=== PATIENT | male | born 1960 | race American Indian/Alaskan Native ===

== ENCOUNTER 2017-03-16 09:20 | Outpatient (CLI) | payer MEDICARE ==
--- NOTE | 2017-03-21 09:38 | Vascular Lab Report ---
RENAL ARTERY DUPLEX EXAM: REASON FOR EXAM: Renal artery stenosis. NOTE: Visualization is technically adequate. COMMENTS ON THE AORTA: The aorta is patent. Normal flow velocities are observed. No aneurysmal dilatation is noted. Mild atherosclerotic change is identified. The celiac artery is patent with normal flow velocity. The superior mesenteric artery is patent with normal flow velocity. COMMENTS ON THE RIGHT KIDNEY: The kidney measures 10.7 centimeters in greatest dimension. No obvious parenchymal abnormalities are noted. The renal artery is patent. Maximum systolic velocity is 117 cm/sec. This finding is consistent with less than 60% diameter reduction. Renal aortic index is 1.65. This finding is consistent with less than 60% diameter reduction. Overall findings are consistent with less than 60% diameter reduction in the renal artery. COMMENTS ON THE LEFT KIDNEY: The kidney measures 10.4 centimeters in greatest dimension. No obvious parenchymal abnormalities are noted. The renal artery is patent. Maximum systolic velocity is 149 cm/sec. This finding is consistent with less than 60% diameter reduction. Renal aortic index is 2.07. This finding is consistent with less than 60% diameter reduction. Overall findings are consistent with less than 60% diameter reduction in the renal artery. IMPRESSION: RIGHT KIDNEY: Less than 60% diameter reduction in the renal artery. LEFT KIDNEY: Less than 60% diameter reduction in the renal artery.
== END 2017-03-16 09:21 | disposition home or self-care (01) ==
LOC: VAS 09:20
PROVIDERS: ATTEND Internal Medicine
DX: I70.1 Atherosclerosis of renal artery (principal); I10 Essential (primary) hypertension
CPT/HCPCS: 93975

== ENCOUNTER 2020-04-26 15:15 | Emergency (ER) | payer MEDICARE ==
--- NOTE | 2020-04-26 17:29 | Event Note ---
ED Screening Note Date of service: 04/26/20 Time: 17:27 ED Screening Note: The 9-year-old -Vietnamese male was sent here to the emergency room by [facility] today as blood pressure was elevated at 210/120 with a heart rate of 88. Office gave him a clonidine and sent him to the emergency room. Patient was triaged with a blood pressure of 157/115. I rechecked patient's blood pressure its 201/130. Patient does complain of a headache. Patient medication list from [facility] is clonidine 0.2 mg 3 times a day, Eliquis 5 mg twice a day, furosemide 20 mg daily nifedipine ER 90 mg extended release in the evening and spironolactone 25 mg daily in the evening as well as Toprol XL 100 mg extended release once a day. Patient last echocardiogram ejection fraction of 30%. Patient denies any chest pain or shortness of breath but does report a headache. This initial assessment/diagnostic orders/clinical plan/treatment(s) is/are subject to change based on patients health status, clinical progression and re- assessment by fellow clinical providers in the ED. Further treatment and workup at subsequent clinical providers discretion. Patient/guardian urged not to elope from the ED as their condition may be serious if not clinically assessed and managed. Initial orders include:
[2020-04-26] MEDS ORDERED: hydrALAZINE 20 MG/1 ML INJ IV ONE ×2 (20:24→21:31)
[2020-04-26 20:27] LABS: Basophils # (Auto) 0.1 K/mm3 (0.0-0.1); Basophils % (Auto) 1.2 % (0.0-1.8); Eosinophils # (Auto) 0.1 K/mm3 (0.0-0.4); Eosinophils % (Auto) 1.1 % (0.0-4.3); Hematocrit 41.5 % (35.5-45.6); Hemoglobin 14.3 gm/dl (11.8-15.2); Lymphocytes # (Auto) 2.4 K/mm3 (1.2-5.4); Mean Corpuscular HGB Conc 34 % (32-34); Mean Corpuscular Volume 92 fl (84-94); Monocytes # (Auto) 0.7 K/mm3 (0.0-0.8); Monocytes % (Auto) 10.9 % (0.0-7.3); Platelet Count 298 K/mm3 (140-440); Red Blood Count 4.53 M/mm3 (3.65-5.03); Red Cell Distribution Width 13.9 % (13.2-15.2)
[2020-04-26 20:43] LABS: BUN/Creatinine Ratio 14; Blood Urea Nitrogen 11 mg/dL (9-20); Calcium 9.4 mg/dL (8.4-10.2); Hemolysis Index 9
--- NOTE | 2020-04-26 21:31 | Emergency Department Report ---
HPI - General Chief Complaint: High BP Time Seen by Provider: 04/26/20 19:40 - HPI HPI: There is a line assigner at bedside to assist with the patient's history and physical and she will remain with us in the emergency department during this patient's ED course. This is a 59-year-old -[place] male who [facility], sent in by his rug touch up painter Dr. Nye, secondary to very elevated blood pressure. The patient follows up with [place] [facility] secondary to hypertension and a history of cardiomyopathy. The patient was doing a routine follow-up when he was found to have a blood pressure with a systolic of 230 despite compliance with his medications. He was given 0.1 mg of clonidine and told to come to the emergency department for further evaluation. Patient denies any chest pain, shortness of breath, fever, cough, back pain, lower extremity swelling. He has a mild generalized headache that is currently 2 out of 10 in intensity and the patient says that he feels like his legs are "heavy." He denies any vision change, facial droop, slurred speech, numbness or paresthesias. ED Past Medical Hx - Past Medical History Hx Hypertension: Yes Hx Congestive Heart Failure: Yes (cardiomyopathy) Hx Renal Disease: Yes (renal insufficiency) Additional medical history: UNKNOWN - Social History Smoking Status: Never Smoker Substance Use Type: None - Medications Home Medications: Home Medications Medication Instructions Recorded Confirmed Last Taken Type Cephalexin [Keflex] 500 mg PO TID #20 capsule 09/01/13 Unknown Rx Furosemide [Lasix] 40 mg PO DAILY 30 Days tablet 09/01/13 Unknown Rx HYDROcodone/APAP 10-325 [[place] 1 each PO Q8HR PRN #20 tablet 09/01/13 Unknown Rx 10/325] Hydralazine HCl [hydrALAZINE] 50 mg PO TID 30 Days tablet 09/01/13 Unknown Rx Lisinopril [Zestril] 40 mg PO DAILY #30 tablet 09/01/13 Unknown Rx Spironolactone 25 mg PO DAILY #30 tablet 09/01/13 Unknown Rx carvediloL [Coreg] 25 mg PO BID #60 tablet 09/01/13 Unknown Rx Amoxicillin/K Clav Tab [Augmentin 1 tab PO BID #12 tablet 08/07/14 Unknown Rx 875MG] ED Review of Systems ROS: Stated complaint: HTN Other details as noted in HPI Comment: All other systems reviewed and negative Constitutional: weakness. denies: chills, fever Eyes: denies: eye pain, vision change ENT: denies: ear pain, throat pain Respiratory: denies: cough, shortness of breath Cardiovascular: denies: chest pain, palpitations Gastrointestinal: denies: abdominal pain, vomiting Genitourinary: denies: dysuria, discharge Musculoskeletal: denies: back pain, arthralgia Skin: denies: rash, lesions Neurological: headache. denies: numbness, paresthesias Physical Exam - Physical Exam Vital Signs: Vital Signs 04/26/20 04/26/20 04/26/20 15:45 17:35 19:48 Temperature 98 F 98.5 F Pulse Rate 80 74 61 Respiratory 22 17 Rate Blood Pressure 159/115 Blood Pressure 201/130 197/117 [Right] O2 Sat by Pulse 100 100 Oximetry 04/26/20 04/26/20 19:51 20:52 Temperature Pulse Rate 40 L Respiratory 17 Rate Blood Pressure 168/107 Blood Pressure [Right] O2 Sat by Pulse 100 Oximetry Physical Exam: GENERAL: The patient is well-developed well-nourished. HENT: Normocephalic. Atraumatic. Patient has moist mucous membranes. EYES: Extraocular motions are intact. No nystagmus. NECK: Supple. Trachea is midline. CHEST/LUNGS: Clear to auscultation. There is no respiratory distress noted. HEART/CARDIOVASCULAR: Regular. There is no tachycardia. There is no murmur. ABDOMEN: Abdomen is soft, nontender. Patient has normal bowel sounds. There is no abdominal distention. SKIN: Skin is warm and dry. NEURO: The patient is awake, alert, and oriented. The patient is cooperative. The patient has no focal neurologic deficits. MUSCULOSKELETAL: There is no tenderness or deformity. There is no limitation range of motion. ED Course Vital Signs 04/26/20 04/26/20 04/26/20 15:45 17:35 19:48 Temperature 98 F 98.5 F Pulse Rate 80 74 61 Respiratory 22 17 Rate Blood Pressure 159/115 Blood Pressure 201/130 197/117 [Right] O2 Sat by Pulse 100 100 Oximetry 04/26/20 04/26/20 19:51 20:52 Temperature Pulse Rate 40 L Respiratory 17 Rate Blood Pressure 168/107 Blood Pressure [Right] O2 Sat by Pulse 100 Oximetry ED Medical Decision Making - Lab Data Result diagrams: 04/26/20 20:06 04/26/20 20:06 Lab Results 04/26/20 04/26/20 Range/Units 20:06 20:06 WBC 6.5 (4.5-11.0) K/mm3 RBC 4.53 (3.65-5.03) M/mm3 Hgb 14.3 (11.8-15.2) gm/dl Hct 41.5 (35.5-45.6) % MCV 92 (84-94) fl MCH 32 (28-32) pg MCHC 34 (32-34) % RDW 13.9 (13.2-15.2) % Plt Count 298 (140-440) K/mm3 Lymph % (Auto) 37.0 H (13.4-35.0) % [place] % (Auto) 10.9 H (0.0-7.3) % Eos % (Auto) 1.1 (0.0-4.3) % Baso % (Auto) 1.2 (0.0-1.8) % Lymph # (Auto) 2.4 (1.2-5.4) K/mm3 [place] # (Auto) 0.7 (0.0-0.8) K/mm3 Eos # (Auto) 0.1 (0.0-0.4) K/mm3 Baso # (Auto) 0.1 (0.0-0.1) K/mm3 Seg Neutrophils % 49.8 (40.0-70.0) % Seg Neutrophils # 3.3 (1.8-7.7) K/mm3 Sodium 134 L (137-145) mmol/L Potassium 3.7 (3.6-5.0) mmol/L Chloride 99.1 (98-107) mmol/L Carbon Dioxide 25 (22-30) mmol/L Anion Gap 14 mmol/L BUN 11 (9-20) mg/dL Creatinine 0.8 (0.8-1.3) mg/dL Estimated GFR > 60 ml/min BUN/Creatinine Ratio 14 % Glucose 86 (75-100) mg/dL Calcium 9.4 (8.4-10.2) mg/dL - EKG Data -: EKG Interpreted by Nv EKG shows normal: sinus rhythm, axis, intervals, QRS complexes (Incomplete left bundle branch block, LVH), ST-T waves (T wave inversions to the lateral leads) Rate: normal - EKG Data When compared to previous EKG there are: no significant change Interpretation: unchanged when compared t (02/23/12) - Radiology Data Radiology results: report reviewed CT BRAIN: 04/26/2020 INDICATION / CLINICAL INFORMATION: Hypertension and Heada preet. COMPARISON: None available. FINDINGS: BRAIN/INTRACRANIAL STRUCTURES: Unenhanced CT images of the brain demonstrate no evidence of acute intracranial abnormality. Ventricles and sulci are normal in size and shape. There is no evidence of ischemic injury, hemorrhage, or mass. There are no abnormal extra- axial fluid collections EXTRACRANIAL STRUCTURES: Unremarkable. IMPRESSION: No acute abnormality. - Medical Decision Making This patient presents to the emergency department, sent in by his rug touch up painter, after he was found to have a very elevated blood pressure in their office with a systolic of about 230. Upon presentation to the emergency department the patient still has significant hypertension with a systolic of about 200. He denies any chest pain, shortness of breath. The patient complains of a very mild generalized headache and what sounds like some generalized weakness. However given the elevated blood pressure and this complaint of a headache, the patient had a CT scan of the head without contrast that did not show any bleed, shift, mass, ischemia, or any other acute processes. Labs were unremarkable according CBC and metabolic panel. EKG did not have any morphology consistent with ST elevation myocardial infarction or any arrhythmia. Patient was given a dose of IV hydralazine and his blood pressure came down to a more reasonable level. For all these reasons the patient appears safe for discharge home at this time. We discussed staying away from foods that are high in salt and caffeinated products. He will continue taking his blood pressure, and all of his medications, as prescribed. He will keep a blood pressure log. He has good outpatient follow-up with primary care and cardiology. He will return to the emergency department with any worsening of his symptoms or with any acute distress. The line assigner was used throughout his ED course and to discuss the patient's lab and imaging results, as well as the plan for discharge home. Critical Care Time: No Critical care attestation.: If time is entered above; I have spent that time in minutes in the direct care of this critically ill patient, excluding procedure time. ED Disposition Clinical Impression: Asymptomatic hypertensive urgency Disposition: DC-01 TO HOME OR SELFCARE Is pt being admited?: No Condition: Stable Instructions: Hypertension, Adult Additional Instructions: Please follow-up with your primary care physician in the next few days. Please follow-up with your rug touch up painter regarding your hypertension for further evaluation and any medication changes. For now, take all medications as previously prescribed. Try to stay away from foods that are high in salt and caffeinated products. Keep a blood pressure log. Return to the emergency department with any worsening of your symptoms, new or concerning symptoms not addressed during this current emergency department visit, or with any acute distress. Referrals: PRIMARY CARE, [Primary Care Provider] - 2-3 Days JUNAITA DOCKERY MD [Staff Physician] - 2-3 Days Time of Disposition: 22:19
--- NOTE | 2020-04-26 21:58 | Cat Scan Report ---
CT BRAIN: 04/26/2020 INDICATION / CLINICAL INFORMATION: Hypertension and Headache. COMPARISON: None available. FINDINGS: BRAIN/INTRACRANIAL STRUCTURES: Unenhanced CT images of the brain demonstrate no evidence of acute int racranial abnormality. Ventricles and sulci are normal in size and shape. There is no evidence of ischemic injury, hemorrhage, or mass. There are no abnormal extra-axial fluid collections EXTRACRANIAL STRUCTURES: Unremarkable. IMPRESSION: No acute abnormality. All CT scans at this location are performed using dose reduction to ALARA by means of automated expos ure control. Signer Name: Ayo Smith MD Signed: 04/26/2020 9:53 PM Workstation Name: [id number]
[2020-04-26 22:54] VITALS: BP 172/106
--- NOTE | 2020-04-29 10:59 | Electrocardiograph Report ---
[facility] Test Date: 2020-04-26 Test Time: 21:49:49 Pat Name: DANIEL FERRELL Department: Room: Gender: M [place]: : 1960 Requested By: ARLEY CAMPOS Order Number: [id number] Reading MD: Gino Hunter Measurements Intervals [place] Rate: 84 P: 64 SD: 195 QRS: 46 QRSD: 111 T: -23 QT: 398 QTc: 469 Interpretive Statements Sinus rhythm Left atrial enlargement Incomplete left bundle branch block Left ventricular hypertrophy Anterior ST elevation, probably due to LVH No previous ECG available for comparison Electronically Signed On 04-29-2020 7:58:47 PDT by Gino Hunter
== END 2020-04-26 23:06 | disposition home or self-care (01) ==
LOC: ED 15:15
DX: I16.0 Hypertensive urgency (principal); F17.200 Nicotine dependence, unspecified, uncomplicated; R51.9 Headache, unspecified; Z79.899 Other long term (current) drug therapy
CPT/HCPCS: 36415; 70450; 80048; 85025; 93005; 96374; 96376; 99284; J0360

== ENCOUNTER 2021-04-25 16:27 | Inpatient (IN) | payer MEDICARE, OTHER ==
[2021-04-25] MEDS ORDERED: SODIUM CHLORIDE 0.9% 1000 ML 1,000 ML IV ONE (16:53)
[2021-04-25] MEDS ORDERED: METOPROLOL TARTRATE 5 MG/5 ML INJ IV ONE (16:53)
--- NOTE | 2021-04-25 17:30 | XRay Report ---
CHEST 1 VIEW INDICATION: Chest Pain. COMPARISON: None. FINDINGS: Support devices: Cardiac leads project in expected position. Heart: Upper limits of normal. Lungs/Pleura: There are low lung volumes with atelectatic changes in the bases. No pleural abnormalit y. IMPRESSION: 1. No acute findings. Presumed atelectatic changes in the bases. Signer Name: Umesh Lloyd MD Signed: 04/25/2021 5:26 PM Workstation Name: [id number]
[2021-04-25 17:32] LABS: Basophils # (Auto) 0.1 K/mm3 (0.0-0.1); Eosinophils # (Auto) 0.1 K/mm3 (0.0-0.4); Eosinophils % (Auto) 0.7 % (0.0-4.3); Hematocrit 44.1 % (35.5-45.6); Hemoglobin 15.1 gm/dl (11.8-15.2); Lymphocytes # (Auto) 2.2 K/mm3 (1.2-5.4); Lymphocytes % (Auto) 28.4 % (13.4-35.0); Mean Corpuscular HGB Conc 34 % (32-34); Mean Corpuscular Volume 93 fl (84-94); Monocytes # (Auto) 0.6 K/mm3 (0.0-0.8); Monocytes % (Auto) 7.7 % (0.0-7.3); Platelet Count 295 K/mm3 (140-440); Red Blood Count 4.74 M/mm3 (3.65-5.03); Red Cell Distribution Width 13.7 % (13.2-15.2)
--- NOTE | 2021-04-25 17:42 | Cat Scan Report ---
CT HEAD WITHOUT CONTRAST INDICATION / CLINICAL INFORMATION: headache. TECHNIQUE: All CT scans at this location are performed using CT dose reduction for ALARA by means of automated exposure control. COMPARISON: CT head 04/26/2020 FINDINGS: HEMORRHAGE: None. EXTRA-AXIAL SPACES: Normal in size and morphology for the patient's age. VENTRICULAR SYSTEM: Normal in size and morphology for the patient's age. CEREBRAL PARENCHYMA: Periventricular white matter hypodensities in the frontal lobes likely represent chronic microangiopathic changes. Adame-white matter differentiation is preserved. MIDLINE SHIFT / HERNIATION: None. CEREBELLUM / BRAINSTEM: No significant abnormality. ORBITS: Normal as visualized. SOFT TISSUES: There is a chronic appearing skin defect at the posterior scalp which appears unchanged from prior exam. SKULL: No significant abnormality. PARANASAL SINUSES / MASTOID AIR CELLS: Normal as visualized. ADDITIONAL FINDINGS: There is 1.6 cm cyst the root of the maxillary central incisor. IMPRESSION: 1. No CT evidence of acute abnormality. 2. Chronic small vessel disease. 3. Large periapical cyst at the base of the maxillary central incisors, incompletely evaluated. Recom mend correlation for odontogenic disease. Signer Name: Kade Reed MD Signed: 04/25/2021 5:38 PM Workstation Name: [id number]
[2021-04-25 18:08] LABS: Alanine Aminotransferase 20 units/L (7-56); Albumin 4.4 g/dL (3.9-5); BUN/Creatinine Ratio 10; Blood Urea Nitrogen 8 mg/dL (9-20); Calcium 9.6 mg/dL (8.4-10.2); Hemolysis Index 9
--- NOTE | 2021-04-25 19:44 | Emergency Department Report ---
ED General Adult HPI - General Chief complaint: High BP Stated complaint: HYPERTENSION/HEADACHE Time Seen by Provider: 04/25/21 16:50 Source: EMS Mode of arrival: Stretcher Limitations: Physical Limitation - History of Present Illness Initial comments: Pt brought in by EMS with c/o HTN, pt states that he is out of his BP meds. Pt is c/o BOWMAN x3 hours. Pt was give 0.2mg clonidine at [facility]. pt is deaf mute , but he was sent from urgent care for elevated BP and headache , denies any chest pain or SOB pt ran out of his BP meds, carvidolol, lisnipril and spiranolocatone -: Gradual Location: head Radiation: non-radiation Severity scale (0 -10): 5 Quality: aching Consistency: constant Improves with: none Worsens with: none - Related Data Previous Rx's Medication Instructions Recorded Last Taken Type Cephalexin [Keflex] 500 mg PO TID #20 capsule 09/01/13 Unknown Rx Furosemide [Lasix] 40 mg PO DAILY 30 Days tablet 09/01/13 Unknown Rx HYDROcodone/APAP 10-325 [[place] 1 each PO Q8HR PRN #20 tablet 09/01/13 Unknown Rx 10/325] Hydralazine HCl [hydrALAZINE] 50 mg PO TID 30 Days tablet 09/01/13 Unknown Rx Lisinopril [Zestril] 40 mg PO DAILY #30 tablet 09/01/13 Unknown Rx Spironolactone 25 mg PO DAILY #30 tablet 09/01/13 Unknown Rx carvediloL [Coreg] 25 mg PO BID #60 tablet 09/01/13 Unknown Rx Amoxicillin/K Clav Tab [Augmentin 1 tab PO BID #12 tablet 08/07/14 Unknown Rx 875MG] Allergies Allergy/AdvReac Type Severity Reaction Status Date / Time No Known Allergies Allergy Verified 04/26/20 15:38 ED Review of Systems ROS: Stated complaint: HYPERTENSION/HEADACHE Other details as noted in HPI Constitutional: denies: chills, fever Eyes: denies: eye pain, eye discharge, vision change ENT: denies: ear pain, throat pain Respiratory: denies: cough, shortness of breath, wheezing Cardiovascular: denies: chest pain, palpitations Endocrine: no symptoms reported Gastrointestinal: denies: abdominal pain, nausea, diarrhea Genitourinary: denies: urgency, dysuria Musculoskeletal: denies: back pain, joint swelling, arthralgia Skin: denies: rash, lesions Neurological: denies: headache, weakness, paresthesias Psychiatric: denies: anxiety, depression Hematological/Lymphatic: denies: easy bleeding, easy bruising ED Past Medical Hx - Past Medical History Hx Hypertension: Yes Hx Congestive Heart Failure: Yes (cardiomyopathy) Hx Renal Disease: Yes (renal insufficiency) Additional medical history: UNKNOWN - Social History Smoking Status: Never Smoker Substance Use Type: None - Medications Home Medications: Home Medications Medication Instructions Recorded Confirmed Last Taken Type Cephalexin [Keflex] 500 mg PO TID #20 capsule 09/01/13 Unknown Rx Furosemide [Lasix] 40 mg PO DAILY 30 Days tablet 09/01/13 Unknown Rx HYDROcodone/APAP 10-325 [[place] 1 each PO Q8HR PRN #20 tablet 09/01/13 Unknown Rx 10/325] Hydralazine HCl [hydrALAZINE] 50 mg PO TID 30 Days tablet 09/01/13 Unknown Rx Lisinopril [Zestril] 40 mg PO DAILY #30 tablet 09/01/13 Unknown Rx Spironolactone 25 mg PO DAILY #30 tablet 09/01/13 Unknown Rx carvediloL [Coreg] 25 mg PO BID #60 tablet 09/01/13 Unknown Rx Amoxicillin/K Clav Tab [Augmentin 1 tab PO BID #12 tablet 08/07/14 Unknown Rx 875MG] ED Physical Exam - General Limitations: Physical Limitation General appearance: alert, in no apparent distress - Head Head exam: Present: atraumatic, normocephalic - Eye Eye exam: Present: normal appearance - ENT ENT exam: Present: mucous membranes moist - Neck Neck exam: Present: normal inspection - Respiratory Respiratory exam: Present: normal lung sounds bilaterally. Absent: respiratory distress - Cardiovascular Cardiovascular Exam: Present: regular rate, normal rhythm. Absent: systolic murmur, diastolic murmur, rubs, gallop - GI/Abdominal GI/Abdominal exam: Present: soft, normal bowel sounds - Rectal Rectal exam: Present: deferred - Extremities Exam Extremities exam: Present: normal inspection - Back Exam Back exam: Present: normal inspection - Neurological Exam Neurological exam: Present: alert, oriented X3 - Psychiatric Psychiatric exam: Present: normal affect, normal mood - Skin Skin exam: Present: warm, dry, intact, normal color. Absent: rash ED Course Vital Signs 04/25/21 04/25/21 04/25/21 16:38 16:55 17:01 Temperature 97.8 F Pulse Rate 100 H 80 Respiratory 16 20 Rate Blood Pressure 199/140 Blood Pressure 212/149 [Right] O2 Sat by Pulse 97 97 99 Oximetry 04/25/21 04/25/21 04/25/21 17:15 17:51 18:00 Temperature Pulse Rate 84 77 Respiratory 18 23 Rate Blood Pressure 188/132 186/127 186/127 Blood Pressure [Right] O2 Sat by Pulse 97 97 Oximetry 04/25/21 04/25/21 04/25/21 18:16 18:30 18:46 Temperature Pulse Rate 65 70 68 Respiratory 22 26 H 29 H Rate Blood Pressure 199/140 184/136 184/136 Blood Pressure [Right] O2 Sat by Pulse 98 99 99 Oximetry 04/25/21 04/25/21 04/25/21 19:00 19:15 19:30 Temperature Pulse Rate 69 72 74 Respiratory 28 H 30 H 26 H Rate Blood Pressure 182/127 173/120 166/120 Blood Pressure [Right] O2 Sat by Pulse 98 98 98 Oximetry 04/25/21 04/25/21 04/25/21 19:45 20:00 20:16 Temperature Pulse Rate 73 73 71 Respiratory 28 H 20 22 Rate Blood Pressure 156/126 177/121 187/129 Blood Pressure [Right] O2 Sat by Pulse 98 98 97 Oximetry 04/25/21 04/25/21 20:30 20:46 Temperature Pulse Rate 70 73 Respiratory 23 28 H Rate Blood Pressure 185/132 183/125 Blood Pressure [Right] O2 Sat by Pulse 98 97 Oximetry ED Medical Decision Making - Lab Data Result diagrams: 04/25/21 17:06 04/25/21 17:06 - EKG Data -: EKG Interpreted by Pa EKG shows normal: sinus rhythm - Radiology Data Radiology results: report reviewed, image reviewed - Medical Decision Making pt was given lopressor initially , labetalol [address] head was negative as well as labs are unremarkable , , started on nicardipine drip Critical care attestation.: If time is entered above; I have spent that time in minutes in the direct care of this critically ill patient, excluding procedure time. ED Disposition Clinical Impression: Hypertensive urgency, Headache, Uncontrolled hypertension Disposition: ADMITTED INPATIENT Is pt being admited?: Yes Does the pt Need Aspirin: No Condition: Stable Instructions: Hypertension (ED)
[2021-04-25] MEDS: niCARdipine DRIP 40 MG/200 ML BAG IV ONE (21:00)
[2021-04-25 21:47] LABS: Mucus,Urine FEW /HPF
[2021-04-25 21:52] LABS: Amphetamine Screen,Urine PRESUMPTIVE NEGATIVE; Benzodiazepines Screen,Urine PRESUMPTIVE NEGATIVE; Cannabinoid Screen,Urine PRESUMPTIVE NEGATIVE; Cocaine Screen,Urine PRESUMPTIVE NEGATIVE; Methadone Screen,Urine PRESUMPTIVE NEGATIVE; Opiate Screen,Urine PRESUMPTIVE NEGATIVE
[2021-04-25 21:54] LABS: Bilirubin,Urine Negative (Negative); Blood,Urine Trace (Negative); Color,Urine Yellow (Yellow); Urobilinogen,Urine < 2.0 mg/dL (<2.0)
[2021-04-25] MEDS ORDERED: ONDANSETRON 4 MG/2 ML INJ IV PRN (22:55)
[2021-04-25] MEDS ORDERED: ACETAMINOPHEN 325 MG TAB PO PRN (22:55)
[2021-04-25] MEDS ORDERED: HYDROmorphone 1 MG/1 ML INJ IV PRN (22:55)
[2021-04-25] MEDS ORDERED: MORPHINE 2 MG/1 ML INJ IV PRN (22:55)
[2021-04-25] MEDS ORDERED: ALBUTEROL 2.5 MG/3 ML NEBU IH PRN (22:55)
--- NOTE | 2021-04-25 23:03 | History and Physical Report ---
History of Present Illness Date of examination: 04/25/21 Date of admission: 04/25/21 Chief complaint: Uncontrolled hypertension History of present illness: 60 years old male with history of hypertension was brought to the hospital because of headache for the last 3 hours, patient was found to have blood pressure of 212/149.Pt was give 0.2mg clonidine. pt is deaf mute , but he was sent from urgent care for elevated BP and headache , denies any chest pain or SOB pt ran out of his BP meds, carvidolol, lisnipril and spiranolocatone. In the emergency room pt was given lopressor initially , labetalol [address] head was negative as well as labs are unremarkable . Patient started on nicardipine drip. Past History Past Medical History: heart failure, hypertension, renal failure Past Surgical History: No surgical history Social history: other (Non-smoker) Family history: no significant family history Medications and Allergies Allergies Allergy/AdvReac Type Severity Reaction Status Date / Time No Known Allergies Allergy Verified 04/26/20 15:38 Home Medications Medication Instructions Recorded Confirmed Last Taken Type Cephalexin [Keflex] 500 mg PO TID #20 capsule 09/01/13 Unknown Rx Furosemide [Lasix] 40 mg PO DAILY 30 Days tablet 09/01/13 Unknown Rx HYDROcodone/APAP 10-325 [[place] 1 each PO Q8HR PRN #20 tablet 09/01/13 Unknown Rx 10/325] Hydralazine HCl [hydrALAZINE] 50 mg PO TID 30 Days tablet 09/01/13 Unknown Rx Lisinopril [Zestril] 40 mg PO DAILY #30 tablet 09/01/13 Unknown Rx Spironolactone 25 mg PO DAILY #30 tablet 09/01/13 Unknown Rx carvediloL [Coreg] 25 mg PO BID #60 tablet 09/01/13 Unknown Rx Amoxicillin/K Clav Tab [Augmentin 1 tab PO BID #12 tablet 08/07/14 Unknown Rx 875MG] Active Meds: Active Medications Nicardipine/Sodium Chloride (Cardene Drip 40 Mg/200 Ml) 40 mg in 200 mls @ 25 mls/hr IV ONCE ONE; Protocol Stop: 04/26/21 03:46 Last Titration: 04/25/21 22:15 Dose: 12.5 mg/hr, 62.5 mls/hr Review of Systems Constitutional: other (High blood pressure, headache) Neurological: headaches Exam - Constitutional Vitals: Temp Pulse Resp BP Pulse Ox 97.8 F 78 28 H 162/108 96 04/25/21 16:38 04/25/21 21:30 04/25/21 21:30 04/25/21 21:30 04/25/21 21:30 General appearance: Present: no acute distress, well-nourished - EENT Eyes: Present: PERRL ENT: hearing intact, clear oral mucosa - Neck Neck: Present: supple, normal ROM - Respiratory Respiratory effort: normal Respiratory: bilateral: diminished - Cardiovascular Heart Sounds: Present: S1 & S2. Absent: rub, click - Extremities Extremities: pulses symmetrical, No edema Peripheral Pulses: within normal limits - Abdominal General gastrointestinal: Present: soft, non-tender, non-distended, normal bowel sounds Male genitourinary: Present: normal - Integumentary Integumentary: Present: clear, warm, dry - Musculoskeletal Musculoskeletal: gait normal, strength equal bilaterally - Psychiatric Psychiatric: appropriate mood/affect, intact judgment & insight - Neurologic Neurologic: CNII-XII intact, moves all extremities HEART Score - HEART Score Troponin: Troponin T < 0.010 ng/mL (0.00-0.029) 04/25/21 17:06 Results - Labs CBC & Chem 7: 04/25/21 17:06 04/25/21 17:06 Labs: Laboratory Last Values WBC 7.6 K/mm3 (4.5-11.0) 04/25/21 17:06 RBC 4.74 M/mm3 (3.65-5.03) 04/25/21 17:06 Hgb 15.1 gm/dl (11.8-15.2) 04/25/21 17:06 Hct 44.1 % (35.5-45.6) 04/25/21 17:06 MCV 93 fl (84-94) 04/25/21 17:06 MCH 32 pg (28-32) 04/25/21 17:06 MCHC 34 % (32-34) 04/25/21 17:06 RDW 13.7 % (13.2-15.2) 04/25/21 17:06 Plt Count 295 K/mm3 (140-440) 04/25/21 17:06 Lymph % (Auto) 28.4 % (13.4-35.0) 04/25/21 17:06 [place] % (Auto) 7.7 % (0.0-7.3) H 04/25/21 17:06 Eos % (Auto) 0.7 % (0.0-4.3) 04/25/21 17:06 Baso % (Auto) 1.0 % (0.0-1.8) 04/25/21 17:06 Lymph # (Auto) 2.2 K/mm3 (1.2-5.4) 04/25/21 17:06 [place] # (Auto) 0.6 K/mm3 (0.0-0.8) 04/25/21 17:06 Eos # (Auto) 0.1 K/mm3 (0.0-0.4) 04/25/21 17:06 Baso # (Auto) 0.1 K/mm3 (0.0-0.1) 04/25/21 17:06 Seg Neutrophils % 62.2 % (40.0-70.0) 04/25/21 17:06 Seg Neutrophils # 4.7 K/mm3 (1.8-7.7) 04/25/21 17:06 Sodium 135 mmol/L (137-145) L 04/25/21 17:06 Potassium 3.8 mmol/L (3.6-5.0) 04/25/21 17:06 Chloride 101.9 mmol/L (98-107) 04/25/21 17:06 Carbon Dioxide 20 mmol/L (22-30) L 04/25/21 17:06 Anion Gap 17 mmol/L 04/25/21 17:06 BUN 8 mg/dL (9-20) L 04/25/21 17:06 Creatinine 0.8 mg/dL (0.8-1.3) 04/25/21 17:06 Estimated GFR > 60 ml/min 04/25/21 17:06 BUN/Creatinine Ratio 10 % 04/25/21 17:06 Glucose 96 mg/dL (75-100) 04/25/21 17:06 Calcium 9.6 mg/dL (8.4-10.2) 04/25/21 17:06 Total Bilirubin 0.70 mg/dL (0.1-1.2) 04/25/21 17:06 AST 20 units/L (5-40) 04/25/21 17:06 ALT 20 units/L (7-56) 04/25/21 17:06 Alkaline Phosphatase 68 units/L (35-129) 04/25/21 17:06 Troponin T < 0.010 ng/mL (0.00-0.029) 04/25/21 17:06 NT-Pro-B Natriuret Pep 703.6 pg/mL (0-900) 04/25/21 17:06 Total Protein 8.1 g/dL (6.3-8.2) 04/25/21 17:06 Albumin 4.4 g/dL (3.9-5) 04/25/21 17:06 Albumin/Globulin Ratio 1.2 % 04/25/21 17:06 Lipase 24 units/L (13-60) 04/25/21 17:06 Urine Color Yellow (Yellow) 04/25/21 21:24 Urine Turbidity Clear (Clear) 04/25/21 21:24 Urine pH 6.0 (5.0-7.0) 04/25/21 21:24 Ur Specific [place] 1.020 (1.003-1.030) 04/25/21 21:24 Urine Protein 30 mg/dl mg/dL (Negative) 04/25/21 21:24 Urine Glucose (UA) Negative mg/dL (Negative) 04/25/21 21:24 Urine Ketones Negative mg/dL (Negative) 04/25/21 21:24 Urine Blood Trace (Negative) 04/25/21 21:24 Urine Nitrite Neg (Negative) 04/25/21 21:24 Ur Reducing Substances Not Reportable 04/25/21 21:24 Urine Bilirubin Negative (Negative) 04/25/21 21:24 Urine Ictotest Not Reportable 04/25/21 21:24 Urine Urobilinogen < 2.0 mg/dL (<2.0) 04/25/21 21:24 Ur Leukocyte Esterase Negative (Negative) 04/25/21 21:24 Urine WBC (Auto) 1.0 /HPF (0.0-6.0) 04/25/21 21:24 Urine RBC (Auto) 1.0 /HPF (0.0-6.0) 04/25/21 21:24 U Epithel Cells (Auto) 1.0 /HPF (0-13.0) 04/25/21 21:24 Urine Mucus Few /HPF 04/25/21 21:24 Urine Opiates Screen Presumptive negative 04/25/21 21:24 Urine Methadone Screen Presumptive negative 04/25/21 21:24 Ur Barbiturates Screen Presumptive negative 04/25/21 21:24 Ur Phencyclidine Scrn Presumptive negative 04/25/21 21:24 Ur Amphetamines Screen Presumptive negative 04/25/21 21:24 U Benzodiazepines Scrn Presumptive negative 04/25/21 21:24 Urine Cocaine Screen Presumptive negative 04/25/21 21:24 U Marijuana (THC) Screen Presumptive negative 04/25/21 21:24 Drugs of Abuse Note Disclamer 04/25/21 21:24 - Imaging and Cardiology Chest x-ray: report reviewed Assessment and Plan VTE prophylaxis?: Mechanical Plan of care discussed with patient/family: Yes - Patient Problems (1) Hypertensive urgency Current Visit: Yes Status: Acute Plan to address problem: Admit the patient to the critical care unit. Patient is on nicardipine drip. Hydralazine 10 mg IV every 6 hours as needed. We will continue the home medication. We will monitor the patient closely. Echocardiogram. Critical care evaluation. Consult cardiology if needed (2) Uncontrolled hypertension Current Visit: Yes Status: Acute Plan to address problem: Patient is on nicardipine drip. Hydralazine 10 mg IV every 6 hours as needed. We will continue the home medication. (3) CHF (congestive heart failure) Current Visit: Yes Status: Acute Plan to address problem: Fluid restriction. Lasix 40 mg p.o. daily. Lisinopril 40 mg p.o. daily. Spironolactone 25 mg p.o. daily. Echocardiogram (4) CKD (chronic kidney disease) Current Visit: Yes Status: Acute Plan to address problem: Avoid nephrotoxic drug. Renally dose medication. Recheck BMP in the morning (5) Headache Current Visit: Yes Status: Acute Plan to address problem: Tylenol 650 mg p.o. every 6 hours as needed. Morphine 2 mg IV every 4 hours as needed (6) DVT prophylaxis Current Visit: Yes Status: Acute Plan to address problem: SCD for DVT prophylaxis. Pepcid 20 mg p.o. twice daily for GI prophylaxis. Patient is a full code
[2021-04-26] MEDS: niCARdipine DRIP 40 MG/200 ML BAG IV ONE (01:15)
[2021-04-26] MEDS: IPRATROPIUM/ALBUTEROL SULFATE 3 ML AMPUL.NEB IH SCH ×2 (01:45→08:25)
[2021-04-26 05:04] LABS: Basophils # (Auto) 0.1 K/mm3 (0.0-0.1); Basophils % (Auto) 0.7 % (0.0-1.8); Eosinophils # (Auto) 0.1 K/mm3 (0.0-0.4); Eosinophils % (Auto) 1.1 % (0.0-4.3); Hematocrit 40.3 % (35.5-45.6); Hemoglobin 13.9 gm/dl (11.8-15.2); Lymphocytes # (Auto) 1.6 K/mm3 (1.2-5.4); Lymphocytes % (Auto) 21.5 % (13.4-35.0); Mean Corpuscular HGB Conc 34 % (32-34); Mean Corpuscular Volume 93 fl (84-94); Monocytes # (Auto) 0.7 K/mm3 (0.0-0.8); Monocytes % (Auto) 9.3 % (0.0-7.3); Platelet Count 287 K/mm3 (140-440); Red Blood Count 4.36 M/mm3 (3.65-5.03); Red Cell Distribution Width 13.5 % (13.2-15.2)
[2021-04-26] MEDS: hydrALAZINE 25 MG TAB PO SCH ×3 (05:21→22:07)
[2021-04-26 05:27] LABS: BUN/Creatinine Ratio 9; Blood Urea Nitrogen 9 mg/dL (9-20); Hemolysis Index 1
[2021-04-26] MEDS: POTASSIUM CHLORIDE 10 MEQ 10 MEQ/100 ML BAG IV SCH ×2 (07:03→08:19)
[2021-04-26] MEDS: carvediloL 25 MG TAB PO SCH ×2 (07:26→16:36)
[2021-04-26] MEDS ORDERED: hydrALAZINE 25 MG TAB PO SCH (08:00)
[2021-04-26] MEDS ORDERED: POTASSIUM CHLORIDE ER 20 MEQ TAB PO SCH (08:00)
[2021-04-26] MEDS: SPIRONOLACTONE 25 MG TAB PO SCH (09:38)
[2021-04-26] MEDS: FUROSEMIDE 40 MG TAB PO SCH (09:39)
[2021-04-26] MEDS: FAMOTIDINE 20 MG TAB PO SCH ×2 (09:39→22:08)
[2021-04-26] MEDS: LISINOPRIL 40 MG TAB PO SCH (09:39)
[2021-04-26] MEDS ORDERED: POTASSIUM CHLORIDE 10 MEQ 10 MEQ/100 ML BAG IV SCH (10:00)
[2021-04-26] MEDS ORDERED: AMOXICILLIN/K CLAV 875/125MG TAB PO SCH (10:00)
--- NOTE | 2021-04-26 10:33 | Consultation ---
History of Present Illness - Reason for Consult Consult date: 04/26/21 Hypertensive Urgency Requesting physician: KRISTINA DURANT - History of Present Illness 60 y/o male, deaf and mute admitted via the ED for Hypertensive Urgency. Referred to ED by [facility] secondary to elevated BP. Was given clonidine and transferred here. Started on Cardene in ED and has now been weaned off. Took oral therapy and tolerated. Remainder is negative. All labs are normal. Past History Past Medical History: heart failure, hypertension, renal failure Past Surgical History: No surgical history Social history: other (Non-smoker) Family history: no significant family history Medications and Allergies Allergies Allergy/AdvReac Type Severity Reaction Status Date / Time No Known Allergies Allergy Verified 04/26/20 15:38 Home Medications Medication Instructions Recorded Confirmed Last Taken Type Cephalexin [Keflex] 500 mg PO TID #20 capsule 09/01/13 Unknown Rx Furosemide [Lasix] 40 mg PO DAILY 30 Days tablet 09/01/13 Unknown Rx HYDROcodone/APAP 10-325 [[place] 1 each PO Q8HR PRN #20 tablet 09/01/13 Unknown Rx 10/325] Hydralazine HCl [hydrALAZINE] 50 mg PO TID 30 Days tablet 09/01/13 Unknown Rx Lisinopril [Zestril] 40 mg PO DAILY #30 tablet 09/01/13 Unknown Rx Spironolactone 25 mg PO DAILY #30 tablet 09/01/13 Unknown Rx carvediloL [Coreg] 25 mg PO BID #60 tablet 09/01/13 Unknown Rx Amoxicillin/K Clav Tab [Augmentin 1 tab PO BID #12 tablet 08/07/14 Unknown Rx 875MG] Active Meds: Active Medications Acetaminophen (Acetaminophen 325 Mg Tab) 650 mg PO Q4H PRN PRN Reason: Pain MILD(1-3)/Fever >100.5/BOWMAN Albuterol (Albuterol 2.5 Mg/3 Ml Nebu) 2.5 mg IH Q3HRT PRN PRN Reason: Shortness Of Breath Carvedilol (Carvedilol 25 Mg Tab) 25 mg PO BID@0800,1700 [facility] Last Admin: 04/26/21 07:26 Dose: 25 mg Famotidine (Famotidine 20 Mg Tab) 20 mg PO BID [facility] Last Admin: 04/26/21 09:39 Dose: 20 mg Furosemide (Furosemide 40 Mg Tab) 40 mg PO DAILY [facility] Last Admin: 04/26/21 09:39 Dose: 40 mg Hydralazine HCl (Hydralazine 25 Mg Tab) 50 mg PO Q8HR [facility] Last Admin: 04/26/21 05:21 Dose: 50 mg Hydromorphone HCl (Hydromorphone 1 Mg/1 Ml Inj) 0.5 mg IV Q3H PRN PRN Reason: Pain , Severe (7-10) Potassium Chloride (Kcl 10meq/100ml) 10 meq in 100 mls @ 100 mls/hr IV Q1H [facility] Stop: 04/26/21 12:59 Lisinopril (Lisinopril 40 Mg Tab) 40 mg PO DAILY [facility] Last Admin: 04/26/21 09:39 Dose: 40 mg Morphine Sulfate (Morphine 2 Mg/1 Ml Inj) 2 mg IV Q4H PRN PRN Reason: Pain, Moderate (4-6) Ondansetron HCl (Ondansetron 4 Mg/2 Ml Inj) 4 mg IV Q8H PRN PRN Reason: Nausea And Vomiting Potassium Chloride (Potassium Chloride Er 20 Meq Tab) 40 meq PO ONCE@0800 [facility] Stop: 04/26/21 12:00 Last Admin: 04/26/21 09:38 Dose: 40 meq Sodium Chloride (Sodium Chloride 0.9% 10 Ml Flush Syringe) 10 ml IV BID [facility] Last Admin: 04/26/21 09:39 Dose: 10 ml Sodium Chloride (Sodium Chloride 0.9% 10 Ml Flush Syringe) 10 ml IV PRN PRN PRN Reason: LINE FLUSH Spironolactone (Spironolactone 25 Mg Tab) 25 mg PO DAILY [facility] Last Admin: 04/26/21 09:38 Dose: 25 mg Review of Systems All systems: negative Exam - Constitutional Vitals: Temp Pulse Resp BP Pulse Ox 99.7 F H 73 29 H 132/94 98 04/26/21 08:07 04/26/21 10:00 04/26/21 10:00 04/26/21 10:00 04/26/21 10:00 General appearance: Present: no acute distress, well-nourished - EENT Eyes: Present: PERRL, EOM intact ENT: other (deaf) - Neck Neck: Present: supple, normal ROM - Respiratory Respiratory effort: normal Respiratory: bilateral: CTA Results - Labs CBC & Chem 7: 04/26/21 04:32 04/26/21 04:32 Labs: Abnormal lab results 04/25/21 04/25/21 04/26/21 Range/Units 17:06 17:06 04:32 [place] % (Auto) 7.7 H 9.3 H (0.0-7.3) % Sodium 135 L (137-145) mmol/L Potassium (3.6-5.0) mmol/L Carbon Dioxide 20 L (22-30) mmol/L BUN 8 L (9-20) mg/dL Glucose (75-100) mg/dL 04/26/21 Range/Units 04:32 [place] % (Auto) (0.0-7.3) % Sodium 136 L (137-145) mmol/L Potassium 3.3 L (3.6-5.0) mmol/L Carbon Dioxide (22-30) mmol/L BUN (9-20) mg/dL Glucose 129 H (75-100) mg/dL - Imaging and Cardiology Chest x-ray: image reviewed (Cardiomegaly, clear lung dhillon, device intact) Assessment and Plan 60 y/o male with Hypertensive Urgency. Continue PO therapy Transfer to floor Follows with [facility] Will sign off once out of unit.
--- NOTE | 2021-04-26 17:23 | Progress Note ---
Assessment and Plan Assessment and plan: This is a 60 year old with HTN, CHR, AICD in [place] who is deaf/mute admitted for hypertensive emergency Neuro: h/o deaf/mute -Avoid delirium -Reorientation as needed -Maintain sleep-wake cycle -As needed analgesia -CT head negative Cardiac: Hypertensive emergency, h/o HTN, CHF, AICD in situ -S/p nicardipine drip -Resume home p.o. antihypertensive regimen -Spironolactone, Lasix, carvedilol, hydralazine, lisinopril, spironolactone -Echocardiogram shows LVEF of 35 to 40%, hypokinesis of the anterior wall, hypokinesis of the septal wall, hypokinesis of the posterior wall, hypokinesis of the mid inferoseptal wall -Follow-up with [place] outpatient Respiratory: NAD -SPO2 monitoring -Pulmonary hygiene -Supplemental oxygen as needed GI: Obesity -24 hours +59 mL -PPI -BR: colace -Cardiac diet : Hyponatremia, hyponatremia -Strict intake and output -Renally dose medications -Avoid nephrotoxic medications -Replete potassium -trend BMP ID: NAD -f/u blood culture -Monitor WBC and temperature curve Endo: NAD -Avoid hypoglycemia Heme: NAD -heparin subq -Trend CBC -Transfuse hemoglobin less than 7 -Monitor for signs of bleeding -SCDs to BLE while in bed The high probability of a clinically significant, sudden or life threatening deterioration of the [cardio] system(s) required my full and direct attention, intervention and personal management. The aggregate critical care time was [] minutes. 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 Patient was sent to the emergency department from urgent care due to elevated blood pressure and headache. Patient indicated that he ran out of his medications. In the emergency department patient was given Lopressor and labetalol with little effect. Patient is CT head which is negative and unremarkable lab work. Patient was started on a Cardene drip and admitted to the hospital service with consults to [facility]. Hospital course to date: 04/26: Patient has been transitioned off of nicardipine drip to oral medications. Patient will be transferred to the floor. Patient is had an echocardiogram today. Hospitalist Physical - Constitutional Vitals: Temp Pulse Resp BP Pulse Ox 99.4 F 84 25 H 145/82 95 04/26/21 12:28 04/26/21 16:36 04/26/21 16:15 04/26/21 16:36 04/26/21 16:15 General appearance: Present: no acute distress, well-nourished, obese - EENT Eyes: Present: PERRL, EOM intact ENT: clear oral mucosa, poor dentition, no hearing intact - Neck Neck: Present: normal ROM - Respiratory Respiratory effort: normal - Cardiovascular Rhythm: regular Heart Sounds: Present: S1 & S2. Absent: systolic murmur, diastolic murmur - Extremities Extremities: no ischemia, pulses intact, pulses symmetrical, No edema, normal temperature, normal color Peripheral Pulses: within normal limits - Abdominal General gastrointestinal: soft, non-tender, non-distended, normal bowel sounds - Integumentary Integumentary: Present: warm, dry - Psychiatric Psychiatric: other - Neurologic Neurologic: other (sedated) - Allied Health Allied health notes reviewed: nursing, RT HEART Score - HEART Score Troponin: Troponin T < 0.010 ng/mL (0.00-0.029) 04/25/21 17:06 Results - Labs CBC & Chem 7: 04/26/21 04:32 04/26/21 04:32 Labs: Laboratory Last Values WBC 7.4 K/mm3 (4.5-11.0) 04/26/21 04:32 RBC 4.36 M/mm3 (3.65-5.03) 04/26/21 04:32 Hgb 13.9 gm/dl (11.8-15.2) 04/26/21 04:32 Hct 40.3 % (35.5-45.6) 04/26/21 04:32 MCV 93 fl (84-94) 04/26/21 04:32 MCH 32 pg (28-32) 04/26/21 04:32 MCHC 34 % (32-34) 04/26/21 04:32 RDW 13.5 % (13.2-15.2) 04/26/21 04:32 Plt Count 287 K/mm3 (140-440) 04/26/21 04:32 Lymph % (Auto) 21.5 % (13.4-35.0) 04/26/21 04:32 [place] % (Auto) 9.3 % (0.0-7.3) H 04/26/21 04:32 Eos % (Auto) 1.1 % (0.0-4.3) 04/26/21 04:32 Baso % (Auto) 0.7 % (0.0-1.8) 04/26/21 04:32 Lymph # (Auto) 1.6 K/mm3 (1.2-5.4) 04/26/21 04:32 [place] # (Auto) 0.7 K/mm3 (0.0-0.8) 04/26/21 04:32 Eos # (Auto) 0.1 K/mm3 (0.0-0.4) 04/26/21 04:32 Baso # (Auto) 0.1 K/mm3 (0.0-0.1) 04/26/21 04:32 Seg Neutrophils % 67.4 % (40.0-70.0) 04/26/21 04:32 Seg Neutrophils # 5.0 K/mm3 (1.8-7.7) 04/26/21 04:32 Sodium 136 mmol/L (137-145) L 04/26/21 04:32 Potassium 3.3 mmol/L (3.6-5.0) L 04/26/21 04:32 Chloride 101.3 mmol/L (98-107) 04/26/21 04:32 Carbon Dioxide 23 mmol/L (22-30) 04/26/21 04:32 Anion Gap 15 mmol/L 04/26/21 04:32 BUN 9 mg/dL (9-20) 04/26/21 04:32 Creatinine 1.0 mg/dL (0.8-1.3) 04/26/21 04:32 Estimated GFR > 60 ml/min 04/26/21 04:32 BUN/Creatinine Ratio 9 % 04/26/21 04:32 Glucose 129 mg/dL (75-100) H 04/26/21 04:32 Calcium 9.0 mg/dL (8.4-10.2) 04/26/21 04:32 Total Bilirubin 0.70 mg/dL (0.1-1.2) 04/25/21 17:06 AST 20 units/L (5-40) 04/25/21 17:06 ALT 20 units/L (7-56) 04/25/21 17:06 Alkaline Phosphatase 68 units/L (35-129) 04/25/21 17:06 Troponin T < 0.010 ng/mL (0.00-0.029) 04/25/21 17:06 NT-Pro-B Natriuret Pep 703.6 pg/mL (0-900) 04/25/21 17:06 Total Protein 8.1 g/dL (6.3-8.2) 04/25/21 17:06 Albumin 4.4 g/dL (3.9-5) 04/25/21 17:06 Albumin/Globulin Ratio 1.2 % 04/25/21 17:06 Lipase 24 units/L (13-60) 04/25/21 17:06 Urine Color Yellow (Yellow) 04/25/21 21:24 Urine Turbidity Clear (Clear) 04/25/21 21:24 Urine pH 6.0 (5.0-7.0) 04/25/21 21:24 Ur Specific [place] 1.020 (1.003-1.030) 04/25/21 21:24 Urine Protein 30 mg/dl mg/dL (Negative) 04/25/21 21:24 Urine Glucose (UA) Negative mg/dL (Negative) 04/25/21 21:24 Urine Ketones Negative mg/dL (Negative) 04/25/21 21:24 Urine Blood Trace (Negative) 04/25/21 21:24 Urine Nitrite Neg (Negative) 04/25/21 21:24 Ur Reducing Substances Not Reportable 04/25/21 21:24 Urine Bilirubin Negative (Negative) 04/25/21 21:24 Urine Ictotest Not Reportable 04/25/21 21:24 Urine Urobilinogen < 2.0 mg/dL (<2.0) 04/25/21 21:24 Ur Leukocyte Esterase Negative (Negative) 04/25/21 21:24 Urine WBC (Auto) 1.0 /HPF (0.0-6.0) 04/25/21 21:24 Urine RBC (Auto) 1.0 /HPF (0.0-6.0) 04/25/21 21:24 U Epithel Cells (Auto) 1.0 /HPF (0-13.0) 04/25/21 21:24 Urine Mucus Few /HPF 04/25/21 21:24 Urine Opiates Screen Presumptive negative 04/25/21 21:24 Urine Methadone Screen Presumptive negative 04/25/21 21:24 Ur Barbiturates Screen Presumptive negative 04/25/21 21:24 Ur Phencyclidine Scrn Presumptive negative 04/25/21 21:24 Ur Amphetamines Screen Presumptive negative 04/25/21 21:24 U Benzodiazepines Scrn Presumptive negative 04/25/21 21:24 Urine Cocaine Screen Presumptive negative 04/25/21 21:24 U Marijuana (THC) Screen Presumptive negative 04/25/21 21:24 Drugs of Abuse Note Disclamer 04/25/21 21:24 Strauss/IV: Voiding Method Urinal Active Medications - Current Medications Current Medications: Generic Name Dose Route Start Last Admin Trade Name Freq PRN Reason Stop Dose Admin Acetaminophen 650 mg 04/25/21 22:55 Acetaminophen 325 Mg Tab PO Q4H PRN Pain MILD(1-3)/Fever >100.5/BOWMAN Albuterol 2.5 mg 04/25/21 22:55 Albuterol 2.5 Mg/3 Ml Nebu IH Q3HRT PRN Shortness Of Breath Carvedilol 25 mg 04/26/21 08:00 04/26/21 16:36 Carvedilol 25 Mg Tab PO 25 mg BID@0800,1700 WILLIS Administration Famotidine 20 mg 04/26/21 10:00 04/26/21 09:39 Famotidine 20 Mg Tab PO 20 mg BID WILLIS Administration Furosemide 40 mg 04/26/21 10:00 04/26/21 09:39 Furosemide 40 Mg Tab PO 40 mg DAILY WILLIS Administration Hydralazine HCl 50 mg 04/26/21 06:00 04/26/21 14:02 Hydralazine 25 Mg Tab PO 50 mg Q8HR WILLIS Administration Hydromorphone HCl 0.5 mg 04/25/21 22:55 Hydromorphone 1 Mg/1 Ml Inj IV Q3H PRN Pain , Severe (7-10) Lisinopril 40 mg 04/26/21 10:00 04/26/21 09:39 Lisinopril 40 Mg Tab PO 40 mg DAILY WILLIS Administration Morphine Sulfate 2 mg 04/25/21 22:55 Morphine 2 Mg/1 Ml Inj IV Q4H PRN Pain, Moderate (4-6) Ondansetron HCl 4 mg 04/25/21 22:55 Ondansetron 4 Mg/2 Ml Inj IV Q8H PRN Nausea And Vomiting Sodium Chloride 10 ml 04/26/21 10:00 04/26/21 09:39 Sodium Chloride 0.9% 10 Ml Flush Syringe IV 10 ml BID WILLIS Administration Sodium Chloride 10 ml 04/25/21 22:55 Sodium Chloride 0.9% 10 Ml Flush Syringe IV PRN PRN LINE FLUSH Spironolactone 25 mg 04/26/21 10:00 04/26/21 09:38 Spironolactone 25 Mg Tab PO 25 mg DAILY [facility] Administration
[2021-04-26] MEDS ORDERED: oxyCODONE 5 MG TAB PO PRN (18:47)
[2021-04-26] MEDS: DOCUSATE SODIUM 100 MG CAP PO SCH (22:07)
[2021-04-26] MEDS: HEPARIN 5,000 UNIT/1 ML VIAL SUB-Q SCH (22:23)
[2021-04-27] MEDS: hydrALAZINE 25 MG TAB PO SCH ×2 (05:47→14:17)
[2021-04-27] MEDS: HEPARIN 5,000 UNIT/1 ML VIAL SUB-Q SCH ×2 (05:47→14:18)
[2021-04-27] MEDS: carvediloL 25 MG TAB PO SCH (08:35)
[2021-04-27 09:30] VITALS: BP 185/131
[2021-04-27 09:44] LABS: Hematocrit 45.3 % (35.5-45.6); Mean Corpuscular HGB Conc 33 % (32-34); Mean Corpuscular Volume 93 fl (84-94); Platelet Count 307 K/mm3 (140-440); Red Blood Count 4.88 M/mm3 (3.65-5.03); Red Cell Distribution Width 13.5 % (13.2-15.2)
[2021-04-27 09:56] LABS: BUN/Creatinine Ratio 12; Blood Urea Nitrogen 11 mg/dL (9-20); Calcium 9.3 mg/dL (8.4-10.2); Hemolysis Index 24
[2021-04-27] MEDS: SPIRONOLACTONE 25 MG TAB PO SCH (11:03)
[2021-04-27] MEDS: FAMOTIDINE 20 MG TAB PO SCH (11:03)
[2021-04-27] MEDS: DOCUSATE SODIUM 100 MG CAP PO SCH (11:03)
[2021-04-27] MEDS: LISINOPRIL 40 MG TAB PO SCH (11:03)
[2021-04-27] MEDS: FUROSEMIDE 40 MG TAB PO SCH (11:03)
--- NOTE | 2021-04-27 11:58 | Progress Note ---
Assessment and Plan 60 y/o male with Hypertensive Urgency. No further critical care needs. BP control per primary. Will sign off. Continue PO therapy Transfer to floor Follows with [facility] Will sign off once out of unit. Subjective Date of service: 04/27/21 Interval history: Successful transfer out of unit. However still very hypertensive. Objective - Constitutional Vitals: Vital Signs - 12hr 04/27/21 04/27/21 04/27/21 03:38 08:45 10:00 Temperature 97.8 F 98.0 F Pulse Rate 68 75 Respiratory 19 20 Rate Blood Pressure 146/106 Blood Pressure 185/131 [Right] O2 Sat by Pulse 99 96 Oximetry - Labs CBC & Chem 7: 04/27/21 09:02 04/27/21 09:02 Labs: Abnormal lab results 04/27/21 Range/Units 09:02 Carbon Dioxide 20 L (22-30) mmol/L Glucose 106 H (75-100) mg/dL Medications & Allergies - Medications Allergies/Adverse Reactions: Allergies No Known Allergies Allergy (Verified 04/26/20 15:38) Home Medications: Home Medications Medication Instructions Recorded Confirmed Last Taken Type Cephalexin [Keflex] 500 mg PO TID #20 capsule 09/01/13 04/27/21 Unknown Rx Furosemide [Lasix] 40 mg PO DAILY 30 Days tablet 09/01/13 04/27/21 Unknown Rx HYDROcodone/APAP 10-325 [[place] 1 each PO Q8HR PRN #20 tablet 09/01/13 04/27/21 Unknown Rx 10/325] Hydralazine HCl [hydrALAZINE] 50 mg PO TID 30 Days tablet 09/01/13 04/27/21 Unknown Rx Lisinopril [Zestril] 40 mg PO DAILY #30 tablet 09/01/13 04/27/21 Unknown Rx Spironolactone 25 mg PO DAILY #30 tablet 09/01/13 04/27/21 Unknown Rx carvediloL [Coreg] 25 mg PO BID #60 tablet 09/01/13 04/27/21 Unknown Rx Amoxicillin/K Clav Tab [Augmentin 1 tab PO BID #12 tablet 08/07/14 04/27/21 Unkn own Rx 875MG] Active Medications: Generic Name Dose Route Start Last Admin Trade Name Freq PRN Reason Stop Dose Admin Acetaminophen 650 mg 04/25/21 22:55 Acetaminophen 325 Mg Tab PO Q4H PRN Pain MILD(1-3)/Fever >100.5/BOWMAN Albuterol 2.5 mg 04/25/21 22:55 Albuterol 2.5 Mg/3 Ml Nebu IH Q3HRT PRN Shortness Of Breath Carvedilol 25 mg 04/26/21 08:00 04/27/21 08:35 Carvedilol 25 Mg Tab PO 25 mg BID@0800,1700 WILLIS Administration Docusate Sodium 100 mg 04/26/21 22:00 04/27/21 11:03 Docusate Sodium 100 Mg Cap PO 100 mg BID WILLIS Administration Famotidine 20 mg 04/26/21 10:00 04/27/21 11:03 Famotidine 20 Mg Tab PO 20 mg BID WILLIS Administration Furosemide 40 mg 04/26/21 10:00 04/27/21 11:03 Furosemide 40 Mg Tab PO 40 mg DAILY WILLIS Administration Heparin Sodium (Porcine) 5,000 unit 04/26/21 22:00 04/27/21 05:47 Heparin 5,000 Unit/1 Ml Vial SUB-Q 5,000 unit Q8HR WILLIS Administration Hydralazine HCl 50 mg 04/26/21 06:00 04/27/21 05:47 Hydralazine 25 Mg Tab PO 50 mg Q8HR WILLIS Administration Lisinopril 40 mg 04/26/21 10:00 04/27/21 11:03 Lisinopril 40 Mg Tab PO 40 mg DAILY WILLIS Administration Ondansetron HCl 4 mg 04/25/21 22:55 Ondansetron 4 Mg/2 Ml Inj IV Q8H PRN Nausea And Vomiting Oxycodone HCl 5 mg 04/26/21 18:47 Oxycodone 5 Mg Tab PO Q8H PRN Pain, Moderate (4-6) Sodium Chloride 10 ml 04/26/21 10:00 04/27/21 11:03 Sodium Chloride 0.9% 10 Ml Flush Syringe IV 10 ml BID WILLIS Administration Sodium Chloride 10 ml 04/25/21 22:55 Sodium Chloride 0.9% 10 Ml Flush Syringe IV PRN PRN LINE FLUSH Spironolactone 25 mg 04/26/21 10:00 04/27/21 11:03 Spironolactone 25 Mg Tab PO 25 mg DAILY WILLIS Administration HEART Score - HEART Score Troponin: Troponin T < 0.010 ng/mL (0.00-0.029) 04/25/21 17:06
--- NOTE | 2021-04-27 13:12 | Discharge Summary ---
Providers - Providers Date of Admission: 04/25/21 22:55 Attending physician: RIGOBERTO BILL MD 04/25/21 22:00 Consult to Physician [CONS] Stat Comment: Dr. Mendoza spoke with Dr. Enriquez @ [phone] Consulting Provider: TERI ENRIQUEZ Physician Instructions: Reason For Exam: HTN urgency Primary care physician: [facility] Hospitalization Condition: Stable Hospital course: History of present illness: This is a 60 year old male with HTN, CHF, AICD in stiu who is deaf/mute who presented to [facility] on 04/25 with complaints of headache for the past 3 hours and was given 0.2 mg clonidine at his sawmilling operator office. Patient was sent to the emergency department from urgent care due to elevated blood pressure and headache. Patient indicated that he ran out of his medications. In the emergency department patient was given Lopressor and labetalol with little effect. Patient is CT head which is negative and unremarkable lab work. Oriana acharya was started on a Cardene drip and admitted to the hospital service with consults to [facility]. Hospital course to date: 04/26: Patient has been transitioned off of nicardipine drip to oral medications. ECHO completed demonstrated EF 35-40% which is known to patient. He follows with cardiology [facility]. He was advised to follow up with his outpaitent sawmilling operator and primary care physician. Prescriptions for coreg, lisinopril, spironalactone, hydralazine, and lasix were e-scribed to his outpatient [facility] pharmacy. Disposition: 01 HOME / SELF CARE / HOMELESS Final Discharge Diagnosis (Prints w/discharge instructions): hypertensive emergency Time spent for discharge: 35 Core Measure Documentation - Palliative Care Palliative Care/ Comfort Measures: Not Applicable - Core Measures Any of the following diagnoses?: none Exam - Physical Exam Narrative exam: Physical Exam: VITAL SIGNS: Reviewed. GENERAL: The patient appears normally developed, Vital signs as documented. HEAD: No signs of head trauma. EYES: Pupils are equal. Extraocular motions intact. EARS: deaf MOUTH: Oropharynx is normal. NECK: No adenopathy, no JVD. CHEST: Chest with clear breath sounds bilaterally. No wheezes, rales, or rhonchi. CARDIAC: Regular rate and rhythm. S1 and S2, without murmurs, gallops, or rubs. VASCULAR: No Edema. Peripheral pulses normal and equal in all extremities. ABDOMEN: Soft, non tender and non distended. No rebound or guarding, and no masses palpated. Bowel Sounds normal. MUSCULOSKELETAL: Good range of motion of all major joints. Extremities without clubbing, cyanosis or edema. NEUROLOGIC EXAM: Alert and oriented x 4. no focal sensory or strength deficits. PSYCHIATRIC: Mood normal. SKIN: detail exam as documented in skin assessment - Constitutional Vitals: Temp Pulse Resp BP Pulse Ox 98.0 F 75 20 185/131 96 04/27/21 08:45 04/27/21 08:45 04/27/21 08:45 04/27/21 08:45 04/27/21 10:00 Plan Plan of Treatment: Mr Cueto. You are admitted for hypertensive emergency. Control your blood pressure with IV medicine. Your blood pressure significantly improved with this. We also restarted your home antihypertensive medication. An echocardiogram was completed this admission and demonstrated an ejection fraction of 35 to 40%. You stated that you were aware of your underlying cardiomyopathy and follow with a sawmilling operator outpatient for this. During this admission you were never acutely decompensated and did not demonstrate respiratory distress at the time of discharge. You were sent prescriptions for Coreg, lisinopril, Lasix, spironolactone, hydralazine. You were also advised to follow-up with your outpatient sawmilling operator at [facility]. Follow up with: PRIMARY MD ELISABETH [Primary Care Provider] - 3-5 Days JUANITA DOCKERY MD [Staff Physician] - 7 Days Prescriptions: Spironolactone [Aldactone] 25 mg PO DAILY 30 Days #30 tablet hydrALAZINE [Apresoline TAB] 50 mg PO Q8HR 30 Days #90 tablet carvediloL [Coreg] 25 mg PO BID #60 tablet Furosemide [Lasix TAB] 40 mg PO DAILY 30 Days #30 tablet lisinopriL [Zestril TAB] 40 mg PO DAILY 30 Days #30 tablet
== END 2021-04-27 15:51 | disposition home or self-care (01) | DRG 305 ==
LOC: ED 16:27 → CC1 22:55 → 4A 04-26 17:03
PROVIDERS: ADMIT Hospitalist; ATTEND Internal Medicine
DX: I16.1 Hypertensive emergency (principal); E87.1 Hypo-osmolality and hyponatremia; I42.9 Cardiomyopathy, unspecified; I50.22 Chronic systolic (congestive) heart failure; I13.0 Hypertensive heart and chronic kidney disease with heart failure and stage 1 through stage 4 chronic kidney disease, or unspecified chronic kidney disease; N18.9 Chronic kidney disease, unspecified; E66.9 Obesity, unspecified; Z95.810 Presence of automatic (implantable) cardiac defibrillator; Z68.31 Body mass index [BMI] 31.0-31.9, adult
CPT/HCPCS: 36415; 70450; 71045; 80048; 80053; 80307; 81001; 82962; 83690; 83880; 84484; 85025; 85027; 93306; 94760; G0378; J3490; J9280; Q0162; C8929; J1644; J3480; J7030

== ENCOUNTER 2021-08-20 08:28 | Emergency (ER) | payer OTHER ==
[2021-08-20] MEDS ORDERED: hydrALAZINE 25 MG TAB PO ONE (08:55)
[2021-08-20] MEDS ORDERED: LISINOPRIL 20 MG TAB PO ONE (08:55)
[2021-08-20] MEDS ORDERED: carvediloL 6.25 MG TAB PO ONE (08:55)
[2021-08-20] MEDS ORDERED: SPIRONOLACTONE 25 MG TAB PO NR (08:55)
[2021-08-20] MEDS ORDERED: FUROSEMIDE 20 MG TAB PO ONE (08:56)
--- NOTE | 2021-08-20 09:13 | XRay Report ---
CHEST 2 VIEWS INDICATION / CLINICAL INFORMATION: sob STUDY TIME: 857 COMPARISON: 04/25/2021 FINDINGS: SUPPORT DEVICES: Pacer is again noted HEART / MEDIASTINUM: Cardiomegaly is again seen LUNGS / PLEURA: Congestive changes are seen with mild interstitial pulmonary edema. No definite pleur al effusions. Focal increased density in the right base may just be atelectatic though early pneumoni tis is not excluded. No pneumothorax. ADDITIONAL FINDINGS: No significant additional findings. Signer Name: Luis A White MD Signed: 08/20/2021 9:09 AM Workstation Name: [id number]
[2021-08-20 10:16] LABS: Basophils # (Auto) 0.1 K/mm3 (0.0-0.1); Basophils % (Auto) 1.2 % (0.0-1.8); Eosinophils % (Auto) 0.5 % (0.0-4.3); Hematocrit 40.2 % (35.5-45.6); Hemoglobin 14.2 gm/dl (11.8-15.2); Lymphocytes # (Auto) 1.5 K/mm3 (1.2-5.4); Lymphocytes % (Auto) 19.5 % (13.4-35.0); Mean Corpuscular HGB Conc 35 % (32-34); Mean Corpuscular Volume 92 fl (84-94); Monocytes # (Auto) 0.7 K/mm3 (0.0-0.8); Monocytes % (Auto) 9.7 % (0.0-7.3); Platelet Count 285 K/mm3 (140-440); Red Cell Distribution Width 13.1 % (13.2-15.2)
[2021-08-20 10:43] LABS: Alanine Aminotransferase 16 units/L (7-56); Albumin 4.4 g/dL (3.9-5); BUN/Creatinine Ratio 8; Blood Urea Nitrogen 8 mg/dL (9-20); Calcium 9.5 mg/dL (8.4-10.2); Hemolysis Index 2
--- NOTE | 2021-08-20 11:36 | Emergency Department Report ---
ED Shortness of Breath HPI - General Chief Complaint: Dyspnea/Respdistress Stated Complaint: SOB Time Seen by Provider: 08/20/21 10:55 Source: patient Mode of arrival: Ambulatory Limitations: No Limitations - History of Present Illness Initial Comments: 61-year-old male with a past medical history of deafness, cardiomyopathy, AICD, hypertension, and noncompliance presents to the hospital complaining of shortness of breath x3 days. Patient ran out of all his medications 4 days ago. Presents significantly hypertensive with mild tachypnea and tachycardia. As per triage pain is rated 8/10 in intensity however, patient denies pain during my examination and denies chest pain. No reports of cough, fever, or infectious symptoms. he is not currently have a primary care doctor and does not see a mill tender as outpatient - Related Data Previous Rx's Medication Instructions Recorded Last Taken Type Furosemide [Lasix TAB] 40 mg PO DAILY 30 Days #30 tablet 08/20/21 Unknown Rx Spironolactone [Aldactone] 25 mg PO DAILY 30 Days #30 tablet 08/20/21 Unknown Rx carvediloL [Coreg] 25 mg PO BID #60 tablet 08/20/21 Unknown Rx hydrALAZINE [Apresoline TAB] 50 mg PO Q8HR 30 Days #90 tablet 08/20/21 Unknown Rx lisinopriL [Zestril TAB] 40 mg PO DAILY 30 Days #30 tablet 08/20/21 Unknown Rx Allergies Allergy/AdvReac Type Severity Reaction Status Date / Time No Known Allergies Allergy Verified 04/26/20 15:38 ED Review of Systems ROS: Stated complaint: SOB Other details as noted in HPI Comment: All other systems reviewed and negative ED Past Medical Hx - Past Medical History Previous Medical History?: Yes Hx Hypertension: Yes Hx Congestive Heart Failure: Yes (cardiomyopathy) Hx Diabetes: No Hx Renal Disease: Yes (renal insufficiency) Hx Asthma: No Hx COPD: No Additional medical history: UNKNOWN - Surgical History Past Surgical History?: No - Social History Smoking Status: Unknown if ever smoked - Medications Home Medications: Home Medications Medication Instructions Recorded Confirmed Last Taken Type Furosemide [Lasix TAB] 40 mg PO DAILY 30 Days #30 tablet 08/20/21 Unknown Rx Spironolactone [Aldactone] 25 mg PO DAILY 30 Days #30 tablet 08/20/21 Unknown Rx carvediloL [Coreg] 25 mg PO BID #60 tablet 08/20/21 Unknown Rx hydrALAZINE [Apresoline TAB] 50 mg PO Q8HR 30 Days #90 tablet 08/20/21 Unknown Rx lisinopriL [Zestril TAB] 40 mg PO DAILY 30 Days #30 tablet 08/20/21 Unknown Rx ED Physical Exam - General Limitations: No Limitations - Other Other exam information: General: No acute distress Head: Atraumatic Eyes: normal appearance ENT: Moist mucous membranes Neck: Normal appearance, no midline tenderness Chest: Clear to auscultation bilaterally CV: Regular rate and rhythm Abdomen: Soft, normal bowel sounds, nontender, nondistended, no rebound or guarding Back: Normal inspection Extremity: Normal inspection, full range of motion, no lower extremity edema Neuro: Alert O x 3, no facial asymmetry, speech clear, no gross motor sensory deficit Psych: Appropriate behavior Skin: No rash ED Course Vital Signs 08/20/21 08/20/21 08/20/21 08:32 10:05 10:06 Temperature 98.2 F Pulse Rate 104 H 104 H 104 H Respiratory 22 Rate Blood Pressure 191/147 191/147 Blood Pressure 191/147 [Left] O2 Sat by Pulse 98 Oximetry 08/20/21 08/20/21 08/20/21 10:27 10:30 10:46 Temperature Pulse Rate 94 H 93 H 83 Respiratory 26 H 29 H 21 Rate Blood Pressure 147/104 Blood Pressure [Left] O2 Sat by Pulse Oximetry 08/20/21 08/20/21 08/20/21 11:00 11:16 11:30 Temperature Pulse Rate 77 73 72 Respiratory 28 H 24 23 Rate Blood Pressure 129/90 109/79 109/79 Blood Pressure [Left] O2 Sat by Pulse Oximetry 08/20/21 08/20/21 08/20/21 11:50 12:00 12:21 Temperature Pulse Rate 67 Respiratory 22 Rate Blood Pressure 111/76 Blood Pressure [Left] O2 Sat by Pulse 99 98 Oximetry ED Medical Decision Making - Lab Data Result diagrams: 08/20/21 09:38 08/20/21 09:38 Lab Results 08/20/21 08/20/21 Range/Units 09:38 09:38 WBC 7.7 (4.5-11.0) K/mm3 RBC 4.40 (3.65-5.03) M/mm3 Hgb 14.2 (11.8-15.2) gm/dl Hct 40.2 (35.5-45.6) % MCV 92 (84-94) fl MCH 32 (28-32) pg MCHC 35 H (32-34) % RDW 13.1 L (13.2-15.2) % Plt Count 285 (140-440) K/mm3 Lymph % (Auto) 19.5 (13.4-35.0) % [place] % (Auto) 9.7 H (0.0-7.3) % Eos % (Auto) 0.5 (0.0-4.3) % Baso % (Auto) 1.2 (0.0-1.8) % Lymph # (Auto) 1.5 (1.2-5.4) K/mm3 [place] # (Auto) 0.7 (0.0-0.8) K/mm3 Eos # (Auto) 0.0 (0.0-0.4) K/mm3 Baso # (Auto) 0.1 (0.0-0.1) K/mm3 Seg Neutrophils % 69.1 (40.0-70.0) % Seg Neutrophils # 5.3 (1.8-7.7) K/mm3 Sodium 137 (137-145) mmol/L Potassium 4.3 (3.6-5.0) mmol/L Chloride 100.4 (98-107) mmol/L Carbon Dioxide 24 (22-30) mmol/L Anion Gap 17 mmol/L BUN 8 L (9-20) mg/dL Creatinine 1.0 (0.8-1.3) mg/dL Estimated GFR > 60 ml/min BUN/Creatinine Ratio 8 % Glucose 96 (75-100) mg/dL Calcium 9.5 (8.4-10.2) mg/dL Total Bilirubin 1.10 (0.1-1.2) mg/dL AST 20 (5-40) units/L ALT 16 (7-56) units/L Alkaline Phosphatase 67 (35-129) units/L Troponin T < 0.010 (0.00-0.029) ng/mL NT-Pro-B Natriuret Pep 1640 H (0-900) pg/mL Total Protein 7.8 (6.3-8.2) g/dL Albumin 4.4 (3.9-5) g/dL Albumin/Globulin Ratio 1.3 % - EKG Data -: EKG Interpreted by Me EKG shows normal: sinus rhythm, ST-T waves (LVH with repolarization abnormality abnormality) Rate: normal (968) - EKG Data When compared to previous EKG there are: no significant change - Radiology Data Radiology results: report reviewed CHEST 2 VIEWS INDICATION / CLINICAL INFORMATION: sob STUDY TIME: 857 COMPARISON: 04/25/2021 FINDINGS: SUPPORT DEVICES: Pacer is again noted HEART / MEDIASTINUM: Cardiomegaly is again seen LUNGS / PLEURA: Congestive changes are seen with mild interstitial pulmonary edema. No definite pleural effusions. Focal increased density in the right base may just be atelectatic though early pneumonitis is not excluded. No pneumothorax. ADDITIONAL FINDINGS: No significant additional findings. - Medical Decision Making 61-year-old male presents to the hospital with uncontrolled hypertension and symptoms of shortness of breath. Patient's been noncompliant with medications for the past 4 days. Patient was provided his recently prescribed medications. Since receiving medications blood pressure and heart rate have improved. Patient also reports that his shortness of breath has improved. He denies any chest pain. Patient does not have leg edema or hypoxia. Patient likely has unc ontrolled hypertension and CHF exacerbation secondary to medication noncompliance. Since respiratory symptoms are mild at this time he will be treated by restarting his prescribed medications and encouraged to follow-up with cardiology and PMD Critical Care Time: No Critical care attestation.: If time is entered above; I have spent that time in minutes in the direct care of this critically ill patient, excluding procedure time. ED Disposition Clinical Impression: CHF exacerbation, Uncontrolled hypertension, Noncompliance with medication regimen, Medication refill Disposition: 01 HOME / SELF CARE / HOMELESS Is pt being admited?: No Condition: Stable Instructions: Heart Failure Exacerbation, Hypertension (ED) Additional Instructions: Take the medication as prescribed. Follow-up with your doctor or doctor/clinic provided. Return if symptoms worsen as indicated by your discharge instructions. Prescriptions: Spironolactone [Aldactone] 25 mg PO DAILY 30 Days #30 tablet hydrALAZINE [Apresoline TAB] 50 mg PO Q8HR 30 Days #90 tablet carvediloL [Coreg] 25 mg PO BID #60 tablet Furosemide [Lasix TAB] 40 mg PO DAILY 30 Days #30 tablet lisinopriL [Zestril TAB] 40 mg PO DAILY 30 Days #30 tablet Referrals: [facility] [Provider Group] - 3-5 Days (Primary care clinic) TL PEARCE MD [Primary Care Provider] - 3-5 Days (Primary care doctor) KENYA AHN MD [Staff Physician] - 3-5 Days (Design Intern) Time of Disposition: 11:46
[2021-08-20 12:20] VITALS: BP 111/76
--- NOTE | 2021-08-21 15:16 | Electrocardiograph Report ---
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
== END 2021-08-20 12:22 | disposition home or self-care (01) ==
LOC: ED 08:28
DX: I11.0 Hypertensive heart disease with heart failure (principal); I50.9 Heart failure, unspecified; Z76.0 Encounter for issue of repeat prescription; Z91.14 Patient's other noncompliance with medication regimen; N28.9 Disorder of kidney and ureter, unspecified; Z79.899 Other long term (current) drug therapy
CPT/HCPCS: 36415; 71046; 80053; 83880; 84484; 85025; 93005; 99284